=== PATIENT | female | born 1960 ===

== ENCOUNTER 2017-06-18 15:20 | Emergency (ER) | payer BC ==
[2017-06-18 15:20] VITALS: BMI 20.5
--- NOTE | 2017-06-18 18:09 | ED PDOC ---
HPI: General Adult Time Seen by Provider: 06/18/17 17:02 Chief Complaint (Nursing): Flu-like Symptoms Chief Complaint (Provider): Flu like symptoms History Per: Patient History/Exam Limitations: no limitations Onset/Duration Of Symptoms: Days (3) Additional Complaint(s): 57yo female, presents to ER for evaluation of cough, fever and headache for the past 3 days. Patient was seen by her PCP Dr. Johnson and was informed to come to ER for further evaluation. She has no other complaints. Past Medical History Reviewed: Historical Data, Nursing Documentation, Vital Signs Vital Signs: Last Vital Signs Temp 98.9 F 06/18/17 16:05 Pulse 78 06/18/17 16:05 Resp 16 06/18/17 16:05 BP 137/92 H 06/18/17 16:05 Pulse Ox 100 06/18/17 18:16 - Medical History PMH: No Chronic Diseases Denies: Colonic Polyps - Surgical History Surgical History: Cholecystectomy (2010), Endoscopy - Family History Family History: States: No Known Family Hx - Home Medications Home Medications: Ambulatory Orders Medication Instructions Recorded Hydroxychloroquine Sulfate 2 tab PO BID 01/31/16 cycloSPORINE [Restasis] 1 ea OP BID 01/31/16 Omeprazole 40 mg PO DAILY #0 ecc 02/01/16 Azithromycin [Zithromax] 250 mg PO DAILY #6 tab 06/18/17 Oseltamivir [Tamiflu] 75 mg PO BID #10 cap 06/18/17 - Allergies Allergies/Adverse Reactions: Allergies Allergy/AdvReac Type Severity Reaction Status Date / Time No Known Allergies Allergy Verified 02/16/16 10:57 Review of Systems ROS Statement: Except As Marked, All Systems Reviewed And Found Negative Constitutional: Positive for: Fever Respiratory: Positive for: Cough Neurological: Positive for: Headache Physical Exam - Reviewed Nursing Documentation Reviewed: Yes Vital Signs Reviewed: Yes - Physical Exam Appears: Positive for: Non-toxic Head Exam: Positive for: ATRAUMATIC, NORMAL INSPECTION, NORMOCEPHALIC Skin: Positive for: Normal Color Eye Exam: Positive for: Normal appearance Neck: Positive for: Supple Cardiovascular/Chest: Positive for: Regular Rate, Rhythm Respiratory: Positive for: Normal Breath Sounds. Negative for: Wheezing, Respiratory Distress Neurologic/Psych: Positive for: Alert, Oriented. Negative for: Motor/Sensory Deficits - Laboratory Results Result Diagrams: 06/18/17 18:08 02/21/18 18:08 - ECG O2 Sat by Pulse Oximetry: 100 (RA) Pulse Ox Interpretation: Normal Medical Decision Making Medical Decision Making: Impression: Influenza like illness Plan: -- CXR -- Rapid flu Afebrile in ER. CXR normal. Discussed with Dr. Johnson. Stevan in office. Scribe Attestation: Documented by Teri Kevin acting as a scribe for KRISTAL Loera Provider Attestation: All medical record entries made by the Scribe were at my direction and personally dictated by me. I have reviewed the chart and agree that the record accurately reflects my personal performance of the history, physical exam, medical decision making, and the department course for this patient. I have also personally directed, reviewed, and agree with the discharge instructions and disposition. Disposition - Clinical Impression Clinical Impression: Influenza - Patient ED Disposition Is Patient to be Admitted: No Counseled Patient/Family Regarding: Diagnosis, Need For Followup, Rx Given - Disposition Disposition: Routine/Home Disposition Time: 19:12 Condition: GOOD Prescriptions: Azithromycin [Zithromax] 250 mg PO DAILY #6 tab Oseltamivir [Tamiflu] 75 mg PO BID #10 cap Instructions: Flu, Adult (DC) Forms: [employer] ([place]ian)
[2017-06-18 18:13] LABS: MEAN CELL VOLUME 89.9 fl (81.0-99.0); MEAN CORPUSCULAR HEMOGLOBIN 29.9 pg (27.0-31.0); MEAN CORPUSCULAR HGB CONC 33.2 g/dL (33.0-37.0); RBC 5.02 Mil/uL (3.80-5.20); RED CELL DISTRIBUTION WIDTH 13.1 % (11.5-14.5); WHITE BLOOD COUNT 4.3 K/uL (4.8-10.8)
[2017-06-18 18:24] LABS: ALB/GLOB RATIO 1.2 (1.0-2.1); ALBUMIN 4.5 g/dL (3.5-5.0); ALT/SGPT 33 U/L (9-52); AST/SGOT 36 U/L (14-36); BLOOD UREA NITROGEN 15 mg/dl (7-17); CALCIUM 9.4 mg/dL (8.4-10.2); GFR AFRICAN-AMERICAN > 60; GFR NON-AFRICAN AMERICAN > 60
[2017-06-18 19:29] VITALS: BP 130/78; PULSE 75; RESP 15; TEMP 98.8; O2SAT 99
--- NOTE | 2017-06-19 09:06 | RAD ---
HISTORY: cough, fever COMPARISON: No prior. TECHNIQUE: Chest PA and lateral FINDINGS: LUNGS: No active pulmonary disease. PLEURA: No significant pleural effusion identified. No pneumothorax apparent. CARDIOVASCULAR: Normal. OSSEOUS STRUCTURES: Under changes. VISUALIZED UPPER ABDOMEN: Right upper quadrant surgical clips. OTHER FINDINGS: None. IMPRESSION: No active disease.
== END 2017-06-18 19:29 | disposition home or self-care (01) ==
LOC: H.ER 15:20
DX: J11.1 Influenza due to unidentified influenza virus with other respiratory manifestations (principal)